=== PATIENT | male | born 2000 | race Caucasian/White ===

== ENCOUNTER → 2022-04-16 | Outpatient (CLI) | payer OTHER ==
[~2022-04-16] MED LIST: POLTRIOPSO OU
[2022-04-18 12:17] LABS: RPR Reactive (Nonreactive)
[2022-04-18 12:22] LABS: RPR TITER 1:32
[2022-04-18 23:08] LABS: CHLAMYDIA TRACHOMATIS, NAA Negative (Negative)
[2022-04-19 12:09] LABS: HIV 2 AB Non Reactive (Non Reactive); HIV AB/P24 AG SCREEN Preliminary Reactive (Non Reactive); INTERPRETATION: HIV-1 Positive (.)
[2022-04-20 00:10] LABS: HBSAG SCREEN Negative (Negative); HCV AB <0.1 (0.0-0.9); HEP A AB, IGM Negative (Negative); HEP B CORE AB, TOT Negative (Negative)
[2022-04-20 09:57] LABS: HIV 1 AB Reactive (Non Reactive)
== END | disposition home or self-care (01) ==
LOC: LAB SHORT 14:25 → LAB 14:25
PROVIDERS: General Practice
DX: Z20.9 Contact with and (suspected) exposure to unspecified communicable disease (principal)
CPT/HCPCS: 86592; 86593; 86704; 86708; 86780; 86803; 87340; 87389; 87491; 87591

== ENCOUNTER → 2022-10-06 | Outpatient (CLI) | payer OTHER | LOC: LAB SHORT 14:21 → PLD 14:21 | DX: D48.5 Neoplasm of uncertain behavior of skin (principal) | CPT/HCPCS: 88305 ==